=== PATIENT | male | born 1990 | race Caucasian/White ===

== ENCOUNTER 2022-03-07 16:48 | Emergency (ER) | payer OTHER ==
[~2022-03-07] VITALS: Ht 185.4 cm; Wt 83.9 kg
[2022-03-07] MEDS ORDERED: KETOROLAC TROMETHAMINE 15 MG INJ ONE (17:42)
[2022-03-07] MEDS ORDERED: KETOROLAC TROMETHAMINE 15 MG INJ IM ONE (17:45)
[2022-03-07] MEDS ORDERED: TDAP DIPH,PERTUSS,TET VAC/PF 0.5 ML DISP.SYRIN IM ONE ×2 (17:49→18:00)
[2022-03-07] MEDS ORDERED: CYCL5TAB PO ×3 (17:55→17:57)
[2022-03-07] MEDS ORDERED: IBUP-1955 PO ×3 (17:55→17:57)
--- NOTE | 2022-03-07 18:05 | NUR ---
Gave pt RX and d/c instructions, pt verbalized understanding.
== END 2022-03-07 18:15 | disposition home or self-care (01) ==
LOC: ER 16:53 → EDSEX 16:53 → ER 18:15
DX: S29.012A Strain of muscle and tendon of back wall of thorax, initial encounter (principal); S86.912A Strain of unspecified muscle(s) and tendon(s) at lower leg level, left leg, initial encounter; Y04.0XXA Assault by unarmed brawl or fight, initial encounter; Y92.89 Other specified places as the place of occurrence of the external cause; T14.8XXA Other injury of unspecified body region, initial encounter
CPT/HCPCS: 99284; 90715; 96372; 90471; J1885; A4663